=== PATIENT | male | born 1955 | race Hispanic/Latino ===

== ENCOUNTER 2019-10-27 07:11 | Emergency (ER) | payer SELFPAY ==
[~2019-10-27] VITALS: Ht 157.5 cm; Wt 65.8 kg
[2019-10-27] MEDS ORDERED: FLOMAX0.4 MG PO (07:44)
== END 2019-10-27 09:46 | disposition home or self-care (01) ==
LOC: ED 07:11 → EDBD 07:12 → ED 07:12
DX: R33.9 Retention of urine, unspecified (principal)
CPT/HCPCS: 51702; 51798; 80053; 81001; 85025; 99283-25; G0103

== ENCOUNTER 2019-11-08 06:45 | Emergency (ER) | payer SELFPAY ==
[~2019-11-08] VITALS: Ht 157.5 cm; Wt 65.8 kg
[~2019-11-08 06:45] MED LIST: FLOMAX0.4 MG PO
--- OUTSIDE RECORDS SUMMARY | 2019-11-08 06:48 | XMS ---
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 John has no Care Guidelines for this patient. Gina VISIT COUNT (12 MO.) [facility] T[facility] NOTE: Visits indicate total known visits. ED/UCC VISIT TRACKING (12 MO.) 11/08/2019 06:46 [facility]: Emergency COMPLAINT: - URINE PROBLEM, ABD PAIN 10/27/2019 07:12 [facility] [place] TYPE: Emergency COMPLAINT: - URINE PROBLEM DIAGNOSES: - Retention of urine, unspecified INPATIENT VISIT TRACKING (12 MO.) No inpatient visits to display in this time frame [email or web address]
[2019-11-08] MEDS ORDERED: PROSCAR5 MG PO (07:55)
[2019-11-08] MEDS ORDERED: KEFLEX500 MG PO (08:27)
== END 2019-11-08 09:09 | disposition home or self-care (01) ==
LOC: ED 06:45
DX: N39.0 Urinary tract infection, site not specified (principal); R33.9 Retention of urine, unspecified
CPT/HCPCS: 51702; 81001; 87077; 87088; 87186; 99283-25; A9270